=== PATIENT | female | born 1955 | race Caucasian/White ===

== ENCOUNTER 2022-09-22 18:39 | Emergency (ER) | payer OTHER ==
[~2022-09-22] VITALS: Ht 152.4 cm; Wt 48.5 kg
[2022-09-22 18:52] VITALS: BP 182/88
--- NOTE | 2022-09-22 18:56 | NUR ---
PT AMB TO BED 7
--- NOTE | 2022-09-22 19:02 | NUR ---
66YO FEMALE PT C/O L INDEX FINGER PAIN X1HR. REPORTS FISH HOOK PUNCTURE AFTER ATTEMPTING TO REMOVE IT FROM DAUGHTERS SWEATER. FISH HOOK PRESENT AT TIP OF FINGER , NO ACTIVE BLEEDING. DENIES NUMBING OR LOSS OF SENSATION. PT AAOX4, HOB POSITIONED PER COMFORT. HX: ARTHRITIS NKA
--- NOTE | 2022-09-22 19:26 | NUR ---
REPORT GIVEN TO HEIDI JOHN. TRANSFER OF CARE AT THIS TIME
[2022-09-22] MEDS ORDERED: LIDOCAINE MPF 2% 100 MG/5 ML VIAL INJ ONE (19:40)
[2022-09-22] MEDS ORDERED: LIDOCAINE 2% 1000 MG/50 ML VIAL INJ ONE (19:50)
--- NOTE | 2022-09-22 20:28 | NUR ---
DR FRANCIS REMOVAL OF FISH HOOK. PT TOLERATED WELL.
[2022-09-22] MEDS ORDERED: CEPH-588 PO (20:29)
[2022-09-22] MEDS ORDERED: NAPR-1704 PO (20:29)
[2022-09-22] MEDS ORDERED: BACITRACIN OINT 500 UNITS/GM PKT TP ONE (20:30)
--- NOTE | 2022-09-22 20:56 | NUR ---
Patient discharged with v/s stable. Written and verbal after care instructions given and explained. Patient verbalized understanding. Ambulatory with steady gait. All questions addressed prior to discharge. Advised to follow up with PMD.
== END 2022-09-22 20:55 | disposition home or self-care (01) ==
LOC: MED 18:39
DX: S61.241A Puncture wound with foreign body of left index finger without damage to nail, initial encounter (principal); Z79.1 Long term (current) use of non-steroidal anti-inflammatories (NSAID); Z79.2 Long term (current) use of antibiotics; W45.8XXA Other foreign body or object entering through skin, initial encounter; Y93.89 Activity, other specified; Y92.89 Other specified places as the place of occurrence of the external cause; Y99.8 Other external cause status
CPT/HCPCS: 90471; 90715; 99284; J2001; 10120; 99285